=== PATIENT | male | born 1965 | race Caucasian/White ===

== ENCOUNTER 2016-05-20 18:41 | Emergency (ER) | payer OTHER ==
[~2016-05-20] VITALS: Ht 172.7 cm; Wt 70.0 kg
[2016-05-20 19:16] LABS: HEMATOCRIT 42.3 % (38.0-50.0); MCH 33.5 PG (29.0-34.0); MCV 95.7 FL (86-99); MEAN PLAT.VOLUME 10.9 uM^3 (9.0-12.4); PLATELET COUNT 158 K/uL (156-360); RBC DIS.WIDTH-CV 13.8 % (11.8-14.6); RBC DIS.WIDTH-SD 46.2 % (39-53); RED BLOOD COUNT 4.42 M/uL (4.00-5.50); WHITE BLOOD COUNT 4.7 K/uL (4.1-10.2)
[2016-05-20 19:39] LABS: CHLORIDE 115 mEq/L (99-109); SODIUM 151 mEq/L (136-147)
[2016-05-20 19:41] LABS: GLUCOSE 86 mg/dL (70-99)
[2016-05-20 19:43] LABS: ANION GAP 11 MEQ/L (2-14)
[2016-05-20 19:44] LABS: SERUM ETHYL ALCOHOL 455 mg/dL
[2016-05-20 19:46] LABS: GFR ESTIMATE (CALCULATED) > 59 mL/min/; UREA NITROGEN (BUN) 9 mg/dL (9-23)
[2016-05-20 19:47] LABS: TROP-I INTERPRETATION NEGATIVE; TROPONIN-I < 0.01 ng/mL (0.0-0.30)
[2016-05-21 05:52] VITALS: BP 127/89
== END 2016-05-21 05:52 | disposition home or self-care (01) ==
LOC: EME 18:41
PROVIDERS: Emergency Medicine
DX: F10.129 Alcohol abuse with intoxication, unspecified (principal); Y90.8 Blood alcohol level of 240 mg/100 ml or more; I10 Essential (primary) hypertension; F17.200 Nicotine dependence, unspecified, uncomplicated
CPT/HCPCS: 71010; 80048; 84484; 85027; 93005; 99281; 99285; G0480; J3411; J3475

== ENCOUNTER 2016-06-03 01:12 | Emergency (ER) | payer OTHER ==
[~2016-06-03] VITALS: Ht 177.8 cm; Wt 90.0 kg
[2016-06-03 02:20] VITALS: BP 120/95
== END 2016-06-03 02:45 | disposition home or self-care (01) ==
LOC: EME 01:12
DX: F10.129 Alcohol abuse with intoxication, unspecified (principal)
CPT/HCPCS: 99281; 99284

== ENCOUNTER 2016-06-03 19:07 | Emergency (ER) | payer OTHER ==
[~2016-06-03] VITALS: Ht 170.2 cm; Wt 81.8 kg
[2016-06-03 20:50] LABS: MCH 33.4 PG (29.0-34.0); MCHC 35.7 G/DL (30.0-36.0); MCV 93.6 FL (86-99); RBC DIS.WIDTH-CV 12.8 % (11.8-14.6); RBC DIS.WIDTH-SD 42.4 % (39-53); RED BLOOD COUNT 3.74 M/uL (4.00-5.50); WHITE BLOOD COUNT 4.7 K/uL (4.1-10.2)
[2016-06-03 20:54] LABS: CHLORIDE 108 mEq/L (99-109); POTASSIUM 2.6 mEq/L (3.7-5.4); SODIUM 146 mEq/L (136-147)
[2016-06-03 20:55] LABS: GLUCOSE 106 mg/dL (70-99)
[2016-06-03 20:57] LABS: ANION GAP 16 MEQ/L (2-14)
[2016-06-03 20:59] LABS: GFR ESTIMATE (CALCULATED) > 59 mL/min/; SERUM ETHYL ALCOHOL 386 mg/dL
[2016-06-03 21:00] LABS: UREA NITROGEN (BUN) 7 mg/dL (9-23)
[2016-06-03 21:59] LABS: MEAN PLAT.VOLUME 10.7 uM^3 (9.0-12.4); PLATELET COUNT UNABLE TO REPORT K/uL (156-360)
[2016-06-04 04:42] VITALS: BP 100/64
== END 2016-06-04 04:48 | disposition home or self-care (01) ==
LOC: EME 19:07
PROVIDERS: Emergency Medicine
DX: F10.229 Alcohol dependence with intoxication, unspecified (principal); F17.200 Nicotine dependence, unspecified, uncomplicated; Y90.8 Blood alcohol level of 240 mg/100 ml or more
CPT/HCPCS: 80048; 85027; 99281; 99284; G0480; J7030

== ENCOUNTER 2016-09-27 16:47 | Emergency (ER) | payer OTHER ==
[~2016-09-27] VITALS: Ht 177.8 cm; Wt 91.2 kg
[2016-09-27 23:24] VITALS: BP 102/67
== END 2016-09-27 23:24 | disposition home or self-care (01) ==
LOC: EME 16:47
DX: F10.229 Alcohol dependence with intoxication, unspecified (principal); I10 Essential (primary) hypertension
CPT/HCPCS: 99281; 99283